=== PATIENT | male | born 1985 ===

== ENCOUNTER 2016-09-24 21:38 | Emergency (ER) | payer SELFPAY ==
[2016-09-24 22:31] VITALS: BP 158/97
--- NOTE | 2016-09-24 22:48 | UC ---
Skin Complaint HPI - HPI Summary HPI Summary: 31 yo male with tick bite left chest estimates it was on just a few hours brought in tick and it is not engorged - History of Current Complaint Chief Complaint: [facility] Time Seen by Provider: 09/24/16 22:26 Stated Complaint: TICK Hx Obtained From: Patient Onset/Duration: Gradual Onset Timing: Constant Onset Severity: Mild Current Severity: None Pain Intensity: 0 Aggravating: Nothing Alleviating: Nothing Associated Signs & Symptoms: Positive: Negative Related History: Insect Bite/Sting - Allergy/Home Medications Allergies/Adverse Reactions: Allergies Allergy/AdvReac Type Severity Reaction Status Date / Time No Known Allergies Allergy Verified 09/24/16 22:23 Home Medications: Home Medications Omeprazole CAP* [Prilosec CAP* 20 MG] 20 mg PO DAILY 09/24/16 [History Confirmed 09/24/16] Review of Systems Constitutional: Negative Skin: Negative Eyes: Negative ENT: Negative Respiratory: Negative Cardiovascular: Negative Gastrointestinal: Negative Genitourinary: Negative Motor: Negative Neurovascular: Negative Musculoskeletal: Negative Neurological: Negative Psychological: Negative All Other Systems Reviewed And Are Negative: Yes PMH/Surg Hx/FS Hx/Imm Hx Previously Healthy: Yes - Surgical History Surgical History: Yes Surgery Procedure, Year, and Place: TO DESCEND TESTICLE - Family History Known Family History: Positive: Hypertension - Social History Alcohol Use: Occasionally Substance Use Type: Marijuana Smoking Status (MU): Never Smoked Tobacco Physical Exam Triage Information Reviewed: Yes Appearance: Well-Appearing, No Pain Distress, Well-Nourished Vital Signs: Initial Vital Signs Temp 98.6 F 09/24/16 22:21 Pulse 86 09/24/16 22:21 Resp 14 09/24/16 22:21 BP 158/97 09/24/16 22:21 Pulse Ox 99 09/24/16 22:21 Vital Signs Reviewed: Yes Eyes: Positive: Conjunctiva Clear ENT: Positive: Hearing grossly normal. Negative: Nasal congestion, Nasal drainage, Trismus, Muffled/hoarse voice Neck: Positive: Supple, Nontender, No Lymphadenopathy Cardiovascular: Positive: RRR, No Murmur Musculoskeletal: Positive: ROM Intact, No Edema Neurological: Positive: Alert Psychological Exam: Normal Skin Exam: Other - part of tick mandible retained Course/Dx - Diagnoses Provider Diagnoses: tick bite. elevated BP Discharge - Discharge Plan Condition: Stable Disposition: HOME Patient Education Materials: Tick Bite (ED) Referrals: Non Staff,Doctor [Primary Care Provider] - Additional Instructions: A tiny piece of the mandible of the tick is retained It will not transmit Lyme Disease as your skin grows and sheds it will work it way out (usually in about 3 weeks) you BP was 158/97 and if it consistently remains this high will need to be treated Images Front/Back of Body, Lg ([place]): 1 - tick bite
== END 2016-09-24 22:45 | disposition home or self-care (01) ==
LOC: UCCORT 21:38
DX: S20.362A Insect bite (nonvenomous) of left front wall of thorax, initial encounter (principal); W57.XXXA Bitten or stung by nonvenomous insect and other nonvenomous arthropods, initial encounter; Y93.9 Activity, unspecified; Y92.9 Unspecified place or not applicable; R03.0 Elevated blood-pressure reading, without diagnosis of hypertension; F12.90 Cannabis use, unspecified, uncomplicated
CPT/HCPCS: 99201; G0463